=== PATIENT | female | born 2000 | race Caucasian/White ===

== ENCOUNTER 2018-01-14 18:35 | Emergency (ER) | payer MEDICAID ==
[~2018-01-14] VITALS: Ht 167.6 cm; Wt 72.6 kg
[2018-01-14 19:18] VITALS: BP 105/69
[2018-01-14] MEDS ORDERED: SERTRALINE HCL 50 MG TAB PO ONE (20:00)
== END 2018-01-14 20:30 | disposition home or self-care (01) ==
LOC: ER 18:35
DX: F41.9 Anxiety disorder, unspecified (principal); Z76.0 Encounter for issue of repeat prescription